=== PATIENT | female | born 1985 | race Caucasian/White ===

== ENCOUNTER 2025-01-04 00:01 | Day surgery (SDC) | payer BC, SELFPAY ==
[2024-12-28 14:17] VITALS: BMI 34.6
--- NOTE | 2024-12-28 14:25 | PC.NURSE ---
Report to the Outpatient Waiting Room, entrance under the green pavilion located off [facility], at time _1100_ on date _[id number]_. Planned Procedure Time: _1pm_.? Time changes happen often and if your time is changed the preop area will call you the afternoon before. - You and your visitor will be asked to self-screen and do not enter if you have any COVID symptoms. Please call surgeon if you need to reschedule. - A mask is optional within the hospital at this time. Patients may have clear liquids (water, carbonated beverages, clear teas, apple juice) until 3 hours prior to surgery with a maximum of 20 ounces. - No food from midnight until time of surgery and no smoking, or chewing tobacco (or any form of nicotine). No chewing gum, candy or mints. Take only the following medications with a SIP of water on the morning of surgery: ___Albuterol if needed. DO NOT STOP ANY OF YOUR OTHER PRESCRIPTION MEDICATIONS PRIOR TO SURGERY EXCEPT THE FOLLOWING Hold all vitamins and supplements for 3 days per anesthesiologist. Medications to discontinue per physician Date to take last dose Please no make-up, nail welsh, hairspray, perfume, deodorant, or body powder the day of surgery.? No jewelry (including any body piercings) or valuables the day of surgery, leave them at home.? Please take a shower or bath the night before, or the morning of, surgery with an antibacterial soap.? Wear comfortable, loose fitting clothing.? - Jewelry must be removed prior to entering the operating room.? Rings and piercings that are not removed may be cut off. - The hospital will not accept responsibility for valuables.? - Please leave all valuables, including medications, at home the day of surgery. If you are going home after surgery, a licensed class a truck driver must drive you home.? - NO public transportation without another adult if you receive anesthesia. - We recommend that an adult stay with you for 24 hours following discharge. - We also recommend that you do not drive, make important decision, drink alcoholic beverages, or take any drugs that were not prescribed by your health care provider for at least 24 hours after your discharge time. Follow any additional instructions given to you from your surgeon. Telephone instructions given to _Tara_and asked if any additional questions and then verbalized understanding. Patient advised to call surgeon office or pre surgery nurse liaison [phone] if any additional questions.
--- OUTSIDE RECORDS SUMMARY | 2025-01-04 00:04 | XMS_ITS | Data Portability ---
Author Organization GEOFFREY Donald RICE Address [address] [facility] [place] [address] Assessment Encounter Date Assessment Date Assessment LastModified by Organization Details LastModified Time 03/21/2016 03/21/2016 No complaints at this time. Would like to restart control pills that she was on most recent. Rx called into pharmacy. Pap done and sent to lab. Counseled regarding prevention of STD's . Counseled regarding contraceptive options . Advised avoidance of tobacco, alcohol, and drugs . Counseled regarding folic acid supplementation, calcium needs and prevention of osteoporosis . BSE reviewed and recommended. [email or web address] Not available 03/21/2016 15:59:27 Plan of Treatment Reminders Order Date Submit Date Provider Last Modified By Organization Details Last Modified Time Details Appointments None recorde d. Lab CBC 2016 017 [facility], [address] [place] [address], [address], [place], [address], 7 08:20:45 CMP, serum or plasma 2016 017 [facility], [facility], [address], [place], [address], 7 08:20:45 lipid panel, serum 2016 017 [facility], [facility], [address], [place], [address], 7 08:20:46 TSH + free T4, serum 2016 017 [facility], [address] [facility], [address], [place], [address], 7 08:20:44 pap, IG + reflex HR HPV (16+18) - cervix 2015 016 [facility], [address] [facility] [facility], [address], [place], [address], 6 11:26:22 cf (cystic fibrosi s) profile 2015 016 [facility], [address] [facility], [address], [place], [address], 6 15:15:43 Referral dermato logist referra l 2015 016 [email or web address] Not available 6 10:13:22 Procedures None recorde d. Surgeries None recorde d. Imaging None recorde d. Medication Orders naproxe n 500 mg tablet 2016 017 [facility], [address] [place] [address], [address] [place] [address], [address], 7 10:08:31 ondanse keith HCl 4 mg tablet 2016 017 [facility], [address] [place] [address], [address] [place] [address], [address], 7 10:08:30 Junel FE 1/20 (28) 1 mg-20 mcg (21)/75 mg (7) tablet 2015 0[facility] [address] [place] [address], [address], [address], 6 16:02:29 ProAir HFA 90 mcg/act uation aerosol inhaler 2015 016 [facility], [address] [place] [address], [address], [place], [address], 6 15:59:23 azithro mycin 500 mg tablet 2015 016 [email or web address] [facility], [address] [place] [address], [address] [place] [address], [address], 6 15:41:58 montelu kast 10 mg tablet 2015 016 [email or web address], [address] [place] [address], [address], [place], [address], 6 15:43:34 Patient TargetsNo targets recorded. Patient Instructions Encounter Date Encounter Id Patient Instructions Last Modified By Organization Details Last Modified Time 02/24/2016 [id number] reactive airway disease: care instructions [email or web address] Not available 02/24/2016 16:00:47 Acute Sinusitis: Care Instructions [email or web address] Not available 02/24/2016 16:00:47 Reason for Referral Set Up And Lay Out Inspector Referral for A cne adult acne Referring Physician: Manolo Colmenares, Family Medicine, Encounter Date: 2015 Results Created Date Observation Date Name Description Value Unit Range Abnormal Flag Note LastModifiedBy Organization Detail LastModifiedTime 03/21/20 16 03/27/2016 pap, IG + refle x HR HPV (16+1 8) diagnosis: COMMEN T abnormal EPITH ELIAL CELL ABNOR MALIT Y. ATYPI AVA SQUAM OUS CELLS OF UNDET ERMIN ED SIGNI FICAN CE. Not Available [facility] ([facility]) [address] [facility], [place], [address], 03/27/2016 11:26:22 03/21/20 16 03/27/2016 pap, IG + refle x HR HPV (16+1 8) specimen adequacy: COMMEN T SATIS FACTO RY FOR EVALU ATION . ENDOC ERVIC AL AND/O R SQUAM OUS METAP LASTI C CELLS (ENDO CERVI AVA COMPO NENT) ARE PRESE NT. Not Available [facility] ([facility]) [address] [place], [address], 03/27/2016 11:26:22 03/21/20 16 03/27/2016 pap, IG + refle x HR HPV (16+1 8) clinician provided ICD10: MIESHA Okeefe Z01.4 19 Not Available [facility] ([facility]) [address] [place], [address], 03/27/2016 11:26:22 03/21/20 16 03/27/2016 pap, IG + refle x HR HPV (16+1 8) performed by: LEYLA GRAFF (ASCP ) Not Available [facility] ([facility]) [address] [place], [address], 03/27/2016 11:26:22 03/21/20 16 03/27/2016 pap, IG + refle x HR HPV (16+1 8) electronical ly signed by: MIESHA TOVAR MD, PATHO LOGIS T Not Available [facility] ([facility]) [address] [place], [address], 03/27/2016 11:26:22 03/21/20 16 03/27/2016 pap, IG + refle x HR HPV (16+1 8) . . Not Available [facility] ([facility]) [address] [place], [address], 03/27/2016 11:26:22 03/21/20 16 03/27/2016 pap, IG + refle x HR HPV (16+1 8) pathologist provided ICD10: MIESHA Okeefe R87.6 10 Not Available [facility] ([facility]) [address] [place], [address], 03/27/2016 11:26:22 03/21/20 16 03/27/2016 pap, IG + refle x HR HPV (16+1 8) note: COMMEN T THE PAP SMEAR IS A SCREE NATALIA TEST DESIG CARIDAD TO AID IN THE DETEC TION OF MIGUEL LIGNA NT AND MALIG NANT CONDI TIONS OF THE UTERI NE CERVI X. IT IS NOT A DIAGN OSTIC PROCE DURE AND SHOUL D NOT BE USED THE SOLE MEANS OF DETEC TING CERVI AVA CANCE R. BOTH FALSE -POSI TIVE AND FALSE -NEGA TIVE REPOR TS DO OCCUR . Not Available [facility] ([facility]) [address] [facility], [place], [address], 03/27/2016 11:26:22 03/21/20 16 03/27/2016 pap, IG + refle x HR HPV (16+1 8) test methodology: COMMEN T THIS LIQUI D BASED THINP REP(R ) PAP TEST WAS SCREE CARIDAD WITH THE USE OF AN IMAGE GUIDE Gwendolyn Herman. Not Available [facility] ([facility]) [address] [facility], [place], [address], 03/27/2016 11:26:22 03/21/20 16 03/27/2016 pap, IG + refle x HR HPV (16+1 8) HPV, high-risk NEGATI VE negati ve THIS HIGH- RISK HPV TEST DETEC TS THIRT EEN HIGH- RISK TYPES (16/1 8/31/ 33/35 /39/4 5/51/ 52/56 /58/5 9/68) WITHO UT DIFFE RENTI ATION . Not Available [facility] ([facility]) [address] [place], [address], 03/27/2016 11:26:22 03/22/20 16 03/29/2016 cf (cyst ic fibro sis) profi le interpretati on: ONE VARIAN T DETECT ED. abnormal Not Available [facility] ([facility]) [address] [facility], [place], [address], 03/29/2016 15:15:43 03/22/20 16 03/29/2016 cf (cyst ic fibro sis) profi le cystic fibrosis mutation 97 COMMEN T MOLEC ULAR ANGELA SIS REPOR T HAS BEEN KANNAN D. Not Available [facility] ([facility]) [address] [facility] [place], [address], 03/29/2016 15:15:43 10/27/19 17 10/27/2016 TSH + free T4, serum TSH 0.922 uIU/m L 0.450- 4.500 Not Available [facility] ([facility]) [address] [facility] [place], [address], 10/27/2016 08:20:44 10/27/19 17 10/27/2016 TSH + free T4, serum T4,free(dire ct) 1.18 NG/dL 0.82-1 .77 Not Available [facility] ([facility]) [address] [facility], [place], [address], 10/27/2016 08:20:44 10/27/19 17 10/27/2016 CBC WBC 6.2 x10e3 /uL 3.4-10 .8 Not Available [facility] ([facility]) [address] [facility] [place], [address], 10/27/2016 08:20:45 10/27/19 17 10/27/2016 CBC RBC 4.43 x10e6 /uL 3.77-5 .28 Not Available [facility] ([facility]) [address] [facility], [place], [address], 10/27/2016 08:20:45 10/27/19 17 10/27/2016 CBC hemoglobin 13.2 g/dL 11.1-1 5.9 Not Available [facility] ([facility]) [address] [facility] [place], [address], 10/27/2016 08:20:45 10/27/19 17 10/27/2016 CBC hematocrit 39.7 % 34.0-4 6.6 Not Available [facility] ([facility]) [address] [facility] [place], [address], 10/27/2016 08:20:45 10/27/19 17 10/27/2016 CBC MCV 90 fL 79-97 Not Available [facility] ([facility]) [address] [facility], [place], [address], 10/27/2016 08:20:45 10/27/19 17 10/27/2016 CBC MCH 29.8 pg 26.6-3 3.0 Not Available [facility] ([facility]) [address] [facility], [place], [address], 10/27/2016 08:20:45 10/27/19 17 10/27/2016 CBC MCHC 33.2 g/dL 31.5-3 5.7 Not Available [facility] ([facility]) [address] [place], [address], 10/27/2016 08:20:45 10/27/19 17 10/27/2016 CBC RDW 14.4 % 12.3-1 5.4 Not Available [facility] ([facility]) [address] [facility], [place], [address], 10/27/2016 08:20:45 10/27/19 17 10/27/2016 CBC platelets 346 x10e3 /uL 150-37 9 Not Available [facility] ([facility]) [address] [place], [address], 10/27/2016 08:20:45 10/27/19 17 10/27/2016 CBC neutrophils 53 % Not Avai lable [facility] ([facility]) [address] [place], [address], 10/27/2016 08:20:45 10/27/19 17 10/27/2016 CBC lymphs 31 % Not Available [facility] ([facility]) [address] [place], [address], 10/27/2016 08:20:45 10/27/19 17 10/27/2016 CBC monocytes 8 % Not Availa ble [facility] ([facility]) [address] [place], [address], 10/27/2016 08:20:45 10/27/19 17 10/27/2016 CBC eos 7 % Not Available [facility] ([facility]) [address] [facility] [place], [address], 10/27/2016 08:20:45 10/27/19 17 10/27/2016 CBC basos 1 % Not Available [facility] ([facility]) [address] [facility] [place], [address], 10/27/2016 08:20:45 10/27/19 17 10/27/2016 CBC immature cells BICYCLE INSPECTOR Not Available [facility] ([facility]) [address] [facility] [place], [address], 10/27/2016 08:20:45 10/27/19 17 10/27/2016 CBC neutrophils (absolute) 3.3 x10e3 /uL 1.4-7. 0 Not Available [facility] ([facility]) [address] [facility] [place], [address], 10/27/2016 08:20:45 10/27/19 17 10/27/2016 CBC lymphs (absolute) 1.9 x10e3 /uL 0.7-3. 1 Not Available [facility] ([facility]) [address] [facility] [place], [address], 10/27/2016 08:20:45 10/27/19 17 10/27/2016 CBC monocytes(ab solute) 0.5 x10e3 /uL 0.1-0. 9 Not Available [facility] ([facility]) [address] [facility] [place], [address], 10/27/2016 08:20:45 10/27/19 17 10/27/2016 CBC eos (absolute) 0.4 x10e3 /uL 0.0-0. 4 Not Available [facility] ([facility]) [address] [facility] [place], [address], 10/27/2016 08:20:45 10/27/19 17 10/27/2016 CBC baso (absolute) 0.0 x10e3 /uL 0.0-0. 2 Not Available [facility] ([facility]) [address] [facility], [place], [address], 10/27/2016 08:20:45 10/27/19 17 10/27/2016 CBC immature granulocytes 0 % Not Available [facility]) [address] [place], [address], 10/27/2016 08:20:45 10/27/19 17 10/27/2016 CBC immature grans (abs) 0.0 x10e3 /uL 0.0-0. 1 Not Available [facility] ([facility]) [address] [place], [address], 10/27/2016 08:20:45 10/27/19 17 10/27/2016 CBC NRBC BICYCLE INSPECTOR Not Available [facility] ([facility]) [address] [place], [address], 10/27/2016 08:20:45 10/27/19 17 10/27/2016 CBC hematology comments: BICYCLE INSPECTOR Not Available [facility] ([facility]) [address] [facility], [place], [address], 10/27/2016 08:20:45 10/27/19 17 10/27/2016 CMP, serum or plasm a glucose, serum 111 mg/dL 65-99 above high normal Not Available [facility] ([facility]) [address] [place], [address], 10/27/2016 08:20:45 10/27/19 17 10/27/2016 CMP, serum or plasm a BUN 16 mg/dL 6-20 Not Available [facility] ([facility]) [address] [place], [address], 10/27/2016 08:20:45 10/27/19 17 10/27/2016 CMP, serum or plasm a creatinine, serum 0.66 mg/dL 0.57-1 .00 Not Available [facility] ([facility]) [address] [facility] [place], [address], 10/27/2016 08:20:45 10/27/19 17 10/27/2016 CMP, serum or plasm a eGFR if nonafricn AM 120 mL/mi n/1.7 3 >59 Not Available [facility] ([facility]) [address] [facility] [place], [address], 10/27/2016 08:20:45 10/27/19 17 10/27/2016 CMP, serum or plasm a eGFR if africn AM 138 mL/mi n/1.7 3 >59 Not Available [facility] ([facility]) [address] [facility] [place], [address], 10/27/2016 08:20:45 10/27/19 17 10/27/2016 CMP, serum or plasm a BUN/creatini ne ratio 24 9-23 above high normal Not Available [facility] ([facility]) [address] [facility] [place], [address], 10/27/2016 08:20:45 10/27/19 17 10/27/2016 CMP, serum or plasm a sodium, serum 140 mmol/ L 134-14 4 Not Available [facility] ([facility]) [address] [place], [address], 10/27/2016 08:20:45 10/27/19 17 10/27/2016 CMP, serum or plasm a potassium, serum 4.5 mmol/ L 3.5-5. 2 Not Available [facility] ([facility]) [address] [place], [address], 10/27/2016 08:20:45 10/27/19 17 10/27/2016 CMP, serum or plasm a chloride, serum 104 mmol/ L 96-106 Not Available [facility] ([facility]) [address] [facility] [place], [address], 10/27/2016 08:20:45 10/27/19 17 10/27/2016 CMP, serum or plasm a carbon dioxide, total 19 mmol/ L 18-29 Not Available [facility] ([facility]) [address] [facility] [place], [address], 10/27/2016 08:20:45 10/27/19 17 10/27/2016 CMP, serum or plasm a calcium, serum 9.4 mg/dL 8.7-10 .2 Not Available [facility] ([facility]) [address] [facility] [place], [address], 10/27/2016 08:20:45 10/27/1910/27/2016 CMP, serum or plasm a protein, total, serum 7.1 g/dL 6.0-8. 5 Not Available [facility] ([facility]) [address] [facility] [place], [address], 10/27/2016 08:20:45 10/27/1910/27/2016 CMP, serum or plasm a albumin, serum 4.4 g/dL 3.5-5. 5 Not Available [facility] ([facility]) [address] [facility] [place], [address], 10/27/2016 08:20:45 10/27/19 17 10/27/2016 CMP, serum or plasm a globulin, total 2.7 g/dL 1.5-4. 5 Not Available [facility] ([facility]) [address] [facility] [place], [address], 10/27/2016 08:20:45 10/27/1910/27/2016 CMP, serum or plasm a A/G ratio 1.6 1.2-2. 2 Not Available [facility] ([facility]) [address] [facility] [place], [address], 10/27/2016 08:20:45 10/27/19 10/27/2016 CMP, serum or plasm a bilirubin, total 0.2 mg/dL 0.0-1. 2 Not Available [facility] ([facility]) [address] [facility] [place], [address], 10/27/2016 08:20:45 10/27/19 17 10/27/2016 CMP, serum or plasm a alkaline phosphatase, S 52 IU/L 39-117 Not Available [facility] ([facility]) [address] [facility] [place], [address], 10/27/2016 08:20:45 10/27/19 17 10/27/2016 CMP, serum or plasm a AST (SGOT) 22 IU/L 0-40 Not Available [facility] ([facility]) [address] [facility] [place], [address], 10/27/2016 08:20:45 10/27/19 17 10/27/2016 CMP, serum or plasm a ALT (SGPT) 28 IU/L 0-32 Not Available [facility] ([facility]) [address] [facility] [place], [address], 10/27/2016 08:20:45 10/27/19 17 10/27/2016 lipid panel , serum cholesterol, total 229 mg/dL 100-19 9 above high normal Not Available [facility] ([facility]) [address] [facility] [place], [address], 10/27/2016 08:20:46 10/27/1910/27/2016 lipid panel , serum triglyceride s 146 mg/dL 0-149 Not Available [facility] ([facility]) [address] [facility] [place], [address], 10/27/2016 08:20:46 10/27/1910/27/2016 lipid panel , serum HDL cholesterol 75 mg/dL >39 Not Available [facility] [address] [facility] [place], [address], 10/27/2016 08:20:46 10/27/19 17 10/27/2016 lipid panel , serum VLDL cholesterol ava 29 mg/dL 5-40 Not Available [facility] ([facility]) [address] [facility] [place], [address], 10/27/2016 08:20:46 10/27/19 17 10/27/2016 lipid panel , serum LDL cholesterol calc 125 mg/dL 0-99 above high normal Not Available [facility] ([facility]) [address] [facility] [place], [address], 10/27/2016 08:20:46 10/27/19 17 10/27/2016 lipid panel , serum comment: BICYCLE INSPECTOR Not Available [facility] ([facility]) [address] [place], [address], 10/27/2016 08:20:46 10/27/19 17 10/27/2016 lipid panel , serum T. chol/HDL ratio 3.1 ratio _unit s 0.0-4. 4 T. CHOL/ HDL RATIO MEN WOMEN 1/2 AVG.R ISK 3.4 3.3 AVG.R ISK 5.0 4.4 2X AVG.R ISK 9.6 7.1 3X AVG.R ISK 23.4 11.0 Not Available [facility] ([facility]) [address] [place], [address], 10/27/2016 08:20:46 10/27/19 17 10/27/2016 cardi ovasc ular asses sment panel , serum interpretati on NOTE SUPPL EMENT REPOR T IS AVAIL ABLE. Not Available [facility] ([facility]) [address] [facility] [place], [address], 10/27/2016 08:20:46 10/27/19 17 10/27/2016 cardi ovasc ular asses sment panel , serum pdf image . Not Available [facility] ([facility]) [address] [place], [address], 10/27/2016 08:20:46 12/01/[address], head + brain , w/o contr ast No observ ation record ed. [email or web address] Not Available 11/22 19:50:44 Result Notes None recorded. Problems Name Problem SNOMED Code Status Onset Date Resolution Date Notes Provider Name and Address Organization Details Recorded Time Environmental allergy 603695789 Active KRISTAN Queen Attn: Jose morse,[address] [place], [address], [facility] 6 15:45:11 Chronic pelvic pain of female 053557092 Active KRISTAN Queen Attn: Jose morse,[address] [place], [place], [address] [place] [address] 2, [facility] 6 15:45:11 Anterior knee pain 624848382 Active MOISE QueenBC Attn: Jose morse,[address] [place], [place], [address] [place] [address] 2, [facility] 6 15:45:11 Tonsillitis 93861977 Active MOISE QueenBC Attn: Jose morse,[address] [place], [place], [address] [place] [address] 2, [facility] 6 15:45:11 Bacterial vaginosis 692047033 MOISE SandovalBC Attn: Jose morse,[address] [place], [place], [address] [place] [address] 2, [facility] 6 15:45:11 Acne 54122661 Active MOISE QueenBC Attn: Accountjoanne morse,[address] [place], [address], [facility] 6 15:45:11 Acute sinusitis 99438438 Active MAX Queen-BC Attn: Accountin g,[address] [place], [address], [facility] 6 15:45:11 Bronchospasm 3238161 Active Lashell Campbellam, [facility]- Attn: Jose morse,[address] [facility], [place], [address], [facility] 6 15:45:11 Notes:refill on bc pills- be en off of pills for 3 months Problem Notes None recorded. Procedures Surgical History Date Name Laterality Status Provider Name and Address Organization Details Recorded Time Other completed Christen Crook nd, [place] [facility] 05/16/2014 14:51:00 Imaging Results None recorded. Procedure Notes None recorded. Medical Equipment None Reported. Allergies No known drug allergies Medications Name Sig Start Date Stop Date Status Note LastModified by Organization Details LastModified Time Erythromyci n (Acne Aid) 2 % topical solution daily active Not Available Not Available Not Available Monodox 100 mg capsule Take 1 capsule twice a day by oral route. active Not Available Not Available No t Available ondansetron HCl 4 mg tablet Take 1 tablet twice a day by oral route as needed for 10 days. 2016 active Not Available Not Available Not Avai lable Flagyl 500 mg tablet Take 1 tablet every 12 hours by oral route for 7 days. 2013 active Not Available Not Available Not Avai lable meclizine 25 mg tablet 11/27 completed Not Available Not Available Not Available Cipro 500 mg tablet Take 1 tablet every 12 hours by oral route for 10 days. 2014 active Not Available Not Available Not Avai lable montelukast 10 mg tablet Take 1 tablet every day by oral route for 90 days. 2015 active Not Available Not Available Not Avai lable naproxen 500 mg tablet TAKE ONE TABLET BY MOUTH TWICE A DAY NEEDED active Not Available Not Available No t Available azithromyci n 500 mg tablet Take 1 tablet every day by oral route for 3 days. 03/21 completed Not Available Not Available Not Available 07/13 (28) 1 mg-20 mcg (21)/75 mg (7) tablet Take 1 tablet every day by oral route. 2015 active Not Available Not Available Not Avai lable Singulair 11/27 completed Not Available Not Available Not Available ProAir HFA 90 mcg/actuati on aerosol inhaler Inhale 2 puffs every 4 hours by inhalatio n route as needed for 30 days. 2015 active Not Available Not Available Not Avai lable Vitals Date Recorded Body height Body weight Body mass index (BMI) Oxygen saturation Oxygen saturation in Arterial blood by Pulse oximetry Heart rate Systolic And Diastolic Provider Name and Address Organization Details Last Updated DateTime 7 160.02 cm 98283.9 3 g 29.6 kg/m2 98 % 98 % 94 /min 120/72 mm[Hg] Sanjuanita Quigley MA [facility] 7 15:58:16 Date Recorded Body weight Body height Body mass index (BMI) Systolic And Diastolic Provider Name and Address Organization Details Last Updated DateTime 2015 50355.088 809 g 160.02 cm 27 kg/m2 130/78 mm[Hg] Sanjuanita Quigley MA [facility] 2015 11:30:49 Date Recorded Body height Body weight Body mass index (BMI) Oxygen saturation Oxygen saturation in Arterial blood by Pulse oximetry Heart rate Systolic And Diastolic Provider Name and Address Organization Details Last Updated DateTime 7 160.02 cm 03752.5 g 30.2 kg/m2 98 % 98 % 95 /min 128/88 mm[Hg] Sanjuanita Quigley [facility] 7 10:01:33 Date Recorded Body height Body mass index (BMI) Oxygen saturation Oxygen saturation in Arterial blood by Pulse oximetry Heart rate Body weight Systolic And Diastolic Provider Name and Address Organization Details Last Updated DateTime 6 160.02 cm 27.7 kg/m2 99 % 99 % 91 /min 89910.5 07419 g 118/76 mm[Hg] Antonia Miner MA [facility] 6 15:43:34 Date Recorded Body height Body weight Body mass index (BMI) Systolic And Diastolic Provider Name and Address Organization Details Last Updated DateTime 03/21/2016 160.02 cm 23279.447 87 g 26.7 kg/m2 114/70 mm[Hg] Sanjuanita Quigley [facility] 03/21/2016 15:41:22 Social History None recorded. Functional Status None recorded. Mental Status None recorded. Family History Relationship Description Onset Age of this Age Resolved Age Notes LastModified by Organization Details LastModified Time Mother Heart disease [email or web address] Not available 15:45:16 Mother Hypertensive disorder [email or web address] Not available 15:45:16 Mother Diabetes mellitus [email or web address] Not available 15:45:16 Mother Cystic fibrosis [email or web address] Not available 15:45:16 Medical History Condition Response Coronary Artery Disease N Kidney Cyst N Blood Diseases N Hyperthyroidism N Blood Transfusion N MRSA N Blood disorders N Emphysema N Blood Clots N COPD N Depression N Pneumonia N Premature N Peripheral Arterial Disease N Edema N TIA N Headaches/Migraines N Anxiety Disorder N Obesity N Infertility N Polyps N Acid Reflux (GERD) N Hematuria N Stroke N Neck Injury N Polio N Hospital Admission other than N Neurologic Disorder N Other Sleep Disorders N Rheumatoid Arthritis N Fibromyalgia N Abdominal Aortic Aneurysm Repair N Kidney Disease N Heart Conditions N Heart Disease/Heart Problems N Hospitalizations N Brain Tumors N Acne N Skin Problems N Eating Disorder N Meningitis N Constipation N Tuberculosis N Cerebral Palsy N Myocardial Infarction N Asthma N Substance Abuse N Peripheral Vascular Disease N Vertigo N Sleep Disorder N Cirrhosis N Pulmonary Embolism N Chicken Pox N Hematologic Disease N Flomax Use Past or Present N Anxiety/Depression N Thyroid Disease N Colon Cancer N Lung Disease N Glaucoma N Developmental or Behavioral Disorders N Bipolar N Pacemaker N Diverticulitis/Diverticulosis N Orthopedic Problems N Anesthesia Complications N Orthotics N Head Injury/Concussion N Congenital Anomalies N Spencer Bite N Chronic Kidney Disease N Endometriosis N Liver Disease N Schizophrenia N Dialysis N Speech Delay N Chronic Obstructive Pulmonary Disease N Parkinson's Disease N Thyroid Problems N GI Problems N Developmental Delay N Anemia N Multiple Sclerosis N Immune System Disorder N Colon Polyps N Heart Attack ([place]) N Diabetes N Cardiomyopathy N Blood Transfusions N Heart Problems/Murmur N Eye Trauma N Congestive Heart Failure (CHF) N Valvular Heart Disease N Hyperlipidemia N Double Vision N Abuse/Domestic Violence N Hepatitis B N Lupus N Epilepsy/Seizures N Reflux/GERD N Aneurysm N Heart Disease N Bronchitis Y Pre-Eclampsia N Hypertension N Heart Failure N Other N Gout N High Blood Pressure N Atrial Fibrillation N Kidney Stones N Head Trauma/Injury N Congenital Heart Disease N Spine Problems N Gastrointestinal Disease N Lung Mass N Sinusitis N Obstructive Sleep Apnea N Muscle, Joint, or Bone Problems N Autoimmune disease N Vision or Eye Problems N Arthritis N Blood Clot N Cancer N Seasonal allergies N Leg or Foot Ulcers N Raynaud's Disease N Aortic Aneurysm N Arrhythmia N Headaches N Heart Problems N [place] N Ear or Hearing Problems N Hyperparathyroidism N Migraines N Artificial Joints N Kidney or Bladder Problems N NSAID Use N Encephalitis N PTSD N Ulcers N Prostate Hypertrophy N Bleeding Disorder N AIDS/HIV N Urinary Tract Infection N Back Problems N Allergies N Atrial Flutter N GERD/Reflux N Hepatitis N Autism Spectrum Disorder (ASD) N Breast Cancer N Hernia N Hypothyroidism N Breast Problem N Genitourinary Disease N Deep Vein Thrombosis N Varicose Veins N Cystic Fibrosis Y Hearing Loss N Developmental Problems N Carotid Disease N Vitamin D Deficiency N ADHD N Bladder or Kidney Problems N High Cholesterol N [place] N Valvular Abnormalities N Psychiatric/Mental Health Condition N Organ Transplant N Foot Deformity N Allergies/Hayfever N Dyslipidemia N Hyponatremia N Diabetic Eye Disease N Osteoporosis/Osteopenia N Back Pain N Proteinuria N Mental Illness N Neurological Problems N Ovarian Cancer N Bedwetting N Seizures/Epilepsy N Kidney Failure N Ocular trauma N Diverticulitis N Dementia N Sleep Apnea N Mental Problems N Warfarin Management N Osteoporosis N Gynecological History Statement/Question Response Abnormal Pap N Sexually Active? Y STIs/STDs N HPV Vaccine N Date of Last Pap Smear Sexual Problems? N Age at Menarche 14 Current Control Method BCPs LMP Approximate Obstetrics History GPAL:G 0 P 0 0 0 0 Type Value Living 0 Total 0 Past Encounters Encounter ID Performer Location Encounter Start Date Encounter Closed Date Diagnosis/Indication Diagnosis SNOMED-CT Code Diagnosis ICD10 Code Diagnosis Note [id number] [facility] [address] 06/07/2014 14:43:19 06/08/2014 10:12:45 Uses contraception [id number] Gynecologi c examination [id number] Sulaiman Acosta MD [facility] [address] [place] [address] 01/28/2015 10:30:35 01/28/2015 11:29:49 Environmental allergy [id number] Sulaiman Acosta MD [facility] [address] [place] [address] 02/11/2015 10:14:31 02/11/2015 10:58:12 Environmental allergy [id number] MD [facility] ([place] [address]) 2 [facility] [place] [place] [address] 02/21/2015 11:18:20 02/21/2015 12:02:33 Uses contraception [id number] Gynecologi c examination 32456838 Chronic pe lvic pain of female [id number] [facility] [address] [place] [address] 04/04/2015 09:52:01 04/04/2015 17:49:52 Anterior knee pain 048728143 M25.569 [id number] Sulaiman Acosta MD [facility] [address] [place] [address] 05/25/2015 11:30:01 05/25/2015 11:58:13 Tonsillitis 32490473 J03.90 [id number] Manolo Colmenares PA-C [facility] [address] [place] [address] 2015 11:22:17 2015 11:51:21 Acne 96509604 L70.9 Environmental allergy 42 7099426 T78.49XD [id number] Manolo Colmenares PA-C [facility] [address] [place] [address] 02/24/2016 15:25:32 02/28/2016 09:55:11 Acne 46234017 L70.9 Acute sinusitis 31814646 J01.90 Bronchospasm 4576981 J98 .01 [id number] Lashell Coates [employer] [address] [place] [address] 03/21/2016 15:29:12 03/21/2016 16:04:19 Gynecologic examination 01941466 Z01.419 Contraception care 97555 5005 Z30.40 Family his tory of cystic fibrosis 054017386 Z83.49 [id number] Sulaiman Acosta MD [facility] [address] [place] [address] 10/25/2016 15:45:33 10/25/2016 17:32:00 Hematoma of lower leg 540063411 S80.11XA [id number] Sulaiman Acosta MD [facility] [address] [place] [address] 2016 09:55:24 2016 13:51:11 Migraine without aura 24726492 G43.009 Health Concerns Section Related Observation LastModified by Organization Detai ls LastModified Time None Recorded Concern Status LastModified by Organization Details LastModified Time None Recorded Advance Directives Directive None Recorded Payers Insurance Date Sequence Insurance Name Policy Number Policy Arboleda Covered Member ID Arboleda Member ID Guarantor Name 02/24/2016 1 [place] [facility] [place] [facility] Itzel Bellitto [id number] Itzel Bellitto 02/24/2016 1 [place] [id number] Itzelfrederic Elenaitto [id number] Itzel Bellitto 10/25/2016 1 [place] [facility] OF PUBLIC AID Itzel Bellitto [id number] Itzel Bellitto 03/20/2017 1 [facility] [id number] Itzelfrederic Greeno [id number] Itzel Petero Notes Date Note Type Note Provider Name and Address Organization Details Recorded Time 2015 text/html acne. wants a specialist. not taking singulair-ran out. Manolo Colmenares PA-C Attn: [address] [place], [address], [facility] 2015 11:37:59 02/24/2016 text/html uri symptoms cou gh, sinus, fever. on doxy currently Manolo Colmenares PA-C Attn: [address] [place], [address], [facility] 02/24/2016 15:55:00 03/21/2016 text/html Annual GYNReport ed bypatient.History:n o gynecologic complaints Menstrual cycle:Normal menses Urinary symptoms:No hematuria; No incontinence Vulva:No genital lesion Vagina:Normal vaginal discharge Breast:No breast pain; No breast lump; No nipple discharge Current Contraception:Wants to discuss contraceptive options Sexual complaints:No sexual complaints; No pain during intercourse; Normal libido Menopausal Symptoms:No menopausal symptoms; Normal vaginal lubrication Psychological symptoms:No depression; No anxiety; No PMDD Preventive measures:Encourage self breast examination; Encourage regular exercise; Encourage no tobacco use; Encourage regular mammograms starting age 40; Followed with Q3 year pap smear and high risk HPV typing Lashell Coates, [facility]- Attn: [address] [place], [address], [facility] 03/21/2016 16:03:57 10/25/2016 text/html has been recievi ng bruises but denies any knowledge of injury. Manolo Colmenares PA-C Attn: [address] [place], [address], [facility] 10/25/2016 17:03:09 11/27/2016 text/html migraines. seen in ER ct scan negative Manolo Colmenares PA-C Attn: [address] [place], [address], [facility] 2016 10:05:10 OBGyn Episode No OBEpisode recorded.
--- OUTSIDE RECORDS SUMMARY | 2025-01-04 00:04 | XMS_ITS | Continuity of Care Document ---
Author Organization [facility] Address [address] [place] [address] Phone Care Team Providers Care Missionary Coordinator Name Role Phone Cielo BUSTAMANTE MD, Sean Unavailable Unavaila ble Advance Directives Directive Yes / No Effective Date File Name No Information Encounters Encounter Description Practice Location Reason(s) For Visit Diagnoses Date Provider Providers Copied on Encounter [facility], [address], [id number], [place] tel:[phone] [facility] No Information 0 Cielo Estrada. [address] [facility], [facility] [address], [place], [place], [id number] , [place]. tel:[phone] Family History Family Member Type Diagnosis Age At Onset No Information Payers Payer name Insurance type Covered republican ID Authoriza tion(s) No Information Social History Type Description Quantity Date Captured Comments Sex Female Smoking Status No Information Chief Complaint And Reason For Visit No Information Reason For Referral Reason For Referral No Information History Of Present Illness Encounter Date Complaint History Of Prese nt Illness No Information Functional Status Date Functional Assessmen t No Information Instructions Date Instruction Additional Infor mation No Information Assessments Type Assessment Date No Information Patient Care Teams Name Effective Dates (start - stop) Status Members No Information
--- OUTSIDE RECORDS SUMMARY | 2025-01-04 00:04 | XMS_ITS | Data Portability ---
Author Organization [facility] Address [address] [place] [address] Care Team Providers Care Group Fitness Manager Name Role Phone YOVANI JONES Primary Care Provider Assessment Encounter Date Assessment Date Assessment LastModified by Organization Details LastModified Time 04/15/2024 04/15/2024 Annual gynecological exam performed. Patient will come back in a year unless there are new symptoms. [email or web address] Not available 04/01/2024 12:40:43 Plan of Treatment Reminders Order Date Submit Date Provider Last Modified By Organization Details Last Modified Time Details Appointments SURG Hysterosc opy 2024 01:00P Batsheva BALL MD Not available Not available Not available SURG POST OP 2024 11:15A Batsheva BALL MD Not available Not available Not available Lab lipid panel, blood 2023 024 [facility] (Lab), [address], [place], [address], 04/27/2024 16:13:23 pap, IG + HR HPV - HPV regardles s but if HPV is positive need subtyping 16,18/45 Add GC/CT/Tri ch 2023 024 [facility] (Lab), [address], [place], [address], 04/22/2024 09:43:07 progester one, serum 2023 024 [facility] (Lab), [address], [place], [address], 04/27/2024 16:13:24 anti-edel erian hormone (amh), serum 2023 [facility] (Lab), [address], [place], [address], 04/27/2024 16:13:23 HbA1c (hemoglob in A1c), blood 2023 [facility] (Lab), [address], [place], [address], 04/27/2024 16:13:26 prolactin , serum 2023 [facility] (Lab), [address] [place], [address], 04/27/2024 16:13:24 17-hydrox yprogeste MAUREEN payne, serum 2023 [facility] (Lab), [address], [place], [address], 04/27/2024 16:13:26 FSH (follicle -stimulat ing hormone), serum 2023 [facility] (Lab), [address] [place], [address], 04/27/2024 16:13:25 estradiol , serum 2023 [facility] (Lab), [address], [place], [address], 04/27/2024 16:13:24 lh (luteiniz ing hormone), serum 2023 [facility] (Lab), [address] [place], [address], 04/27/2024 16:13:25 TSH, serum or plasma 2023 [facility] (Lab), [address], [place], [address], 04/27/2024 16:13:23 testoster one free/test osterone total, ratio, serum 2023 024 [facility] (Lab), [address], [place], [address], 04/27/2024 16:13:26 dhea-sulf ate, serum 2023 024 [facility] (Lab), [address], [place], [address], 04/27/2024 16:13:25 Referral None recorded. Procedures None recorded. Surgeries hysterosc opy, surgical, with biopsy of endometri um and/or polypecto my (SURG) [address], [address] [place] [address], [place], [address], 12/28/2024 11:11:57 Imaging US, pelvis 2023 024 [email or web address], [address], [place], [address], 04/21/2024 13:29:07 US, transvagi nal 2023 024 [email or web address], [address], [place], [address], 04/21/2024 13:29:07 US, pelvis, complete 2023 [email or web address] Not available 04/22/2024 09:15:35 Medication Orders None recorded. Patient TargetsNo targets recorded. Patient InstructionsNo instructions recorded. Reason for Referral None Reported. Results Created Date Observation Date Name Description Value Unit Range Abnormal Flag Note LastModifiedBy Organization Detail LastModifiedTime 04/15/20 24 04/15/2024 IMAGE GUIDE D PAP AND HPV REGAR DLESS image guided Pap, HPV regardless of Pap result SEE RESULT S BELOW CASE REPOR T: Cytol ogy Gynec ologi forest Repor t Case: [id number] Aut[employer] crystal mini Provi afsaneh: Isidro dy, Elan , ANP, PATIENT SERVICES ASSISTANT Colle cted: 04/15 1205 Order ing Locat ion: [place] Patho log[facility] Recei stephanie: 04/16 0816 First Scree n: Abida Escobar, CT Speci men: Lois foster Pap - Image d, Cervi x STATE MENT OF ADEQU ACY: Satis facto ry for evalu ation Trans forma tion zone compo nent prese nt ----- ----- ----- ----- ----- ----- ----- ----- ----- ----- ----- ----- ----- ----- ----- ----- ----- ---- FINAL DIAGN OSIS: Negat max for Intra epith elial Lesjeny hernandez or Oksana canales (NIL) . Elect cynthia appiah by Abida Escobar, CT on 04/22 at 8:37 AM ----- ----- ----- ----- ----- ----- ----- ----- ----- ----- ----- ----- ----- ----- ----- ----- ----- ---- HPV RESUL TS: HPV mRNA E6/E7 : No HPV mRNA Detec modesta NOTE: This high risk HPV mRNA assay detec ts fourt een high- risk HPV types (16, 18, 31, 33, 35, 39, 45, 51, 52, 56, 58, 59, 66, 68) witho ut diffe renti ation . COMME NT: This speci men was revie wed by a Cytot echno logis t and/o r Patho logis t (as indic ated in this repor t) after evalu ation using the Thinp rep Imagi ng Syste m. CLINI FOREST INFOR MATIO N: Menst rual Statu s: LMP (if appli cable ): Clini forest Histo ry/Pr eviou s Pap: Type of Neopl jason (if appli cable ): Signi fican t Clini forest Findi ngs: Other Histo ry: Hormo madonna (if appli cable ): PAP EDUCA JOSSELYN L NOTE: The Pap Test is a scree cristian test with an inher ent false negat max rate. Liqui d-bas ed sampl ing may decre ase, but will not elimi julio césar, false negat max resul ts. A negat max resul t does not precl ude the prese nce and/o r devel opmen t of disea se, since the prese nce of abnor mal cells in the sampl e depen ds on the locat ion of the lesio n and sampl ing techn ique. Garrett nued regul ar scree cristian is the best metho d of cance r preve ntion . If repor modesta cytol ogic findi ng do not corre late with physi forest and/o r histo rical findi ngs, furth er inves tigat ion is recom raheem d, as clini vika warra nted. Not Available [facility] (Lab) [address], [place], [address], 04/22/2024 09:43:06 04/15/20 24 04/15/2024 TRICH OMONA S VAGIN PELON (RRNA ) trichomonas vaginalis ribosomal RNA (rrna) Negati ve negati ve Not Available [facility] (Lab) [address] [place], [address], 04/22/2024 09:43:07 04/15/20 24 04/15/2024 CT/GC (DANIEL) , THINP REP VIAL chlamydia trachomatis, PCR Negati ve negati ve Not Available [facility] (Lab) [address] [place], [address], 04/22/2024 09:43:08 04/15/20 24 04/15/2024 CT/GC (DANIEL) , THINP REP VIAL neisseria gonorrhoeae, PCR Negati ve negati ve Not Available [facility] (Lab) [address] [place], [address], 04/22/2024 09:43:08 04/15/20 24 04/15/2024 LIPID PANEL ,AMA (LDL- CALC) total cholesterol 203 mg/dL 0-199 high Not Available [facility] (Lab) [address] [place], [address], 04/27/2024 16:13:22 04/15/20 24 04/15/2024 LIPID PANEL ,AMA (LDL- CALC) triglyceride s 88 mg/dL 0-150 NCEP Refer ence Value s for Trigl yceri bhupendra: Dasha l: <150 mg/dL Borde rline High: 150 - 199 mg/dL High: 200 - 499 mg/dL Very High: >/= 500 mg/dL Not Available [facility] (Lab) [address] [place], [address], 04/27/2024 16:13:22 04/15/20 24 04/15/2024 LIPID PANEL ,AMA (LDL- CALC) HDL cholesterol 44 mg/dL >40 Not Available [facility] (Lab) [address] [place], [address], 04/27/2024 16:13:22 04/15/20 24 04/15/2024 LIPID PANEL ,AMA (LDL- CALC) LDL cholesterol 140 mg/dL 0-99 high Cutof f value s recom raheem d by the Natio nal Ai stero l Educa tion Progr am: KALYAN ABLE: Ai stero l <200 mg/dL LDL <100 mg/dL BORDE RLINE : Ai stero l 200-2 39 mg/dL LDL 101-1 59 mg/dL HIGHE R RISK: Ai stero l >240 mg/dL LDL >160 mg/dL , HDL <40 mg/dL Not Available [facility] (Lab) [address] [place], [address], 04/27/2024 16:13:22 10/23/20 24 04/15/2024 LIPID PANEL ,AMA (LDL- CALC) non-HDL cholesterol 159 mg/dL no refere nce range A reaso nable goal for non-H DL ai stero l is one that is 30 mg/dL highe r than the LDL ai stero l goal. Not Available [facility] (Lab) [address], [place], [address], 04/27/2024 16:13:22 04/15/20 24 04/15/2024 LIPID PANEL ,AMA (LDL- CALC) chol/HDL ratio 4.6 . 0.0-5. 0 On October 16, 2022, [facility] labor atori elisa nolasco ed the equat ion for calcu latin g estim ated low-d ensit y lipop rotei n-cho leste rol (LDL- C) from the Fried nae equat ion to the Liss david/Hop kins equat ion. This new equat ion is only valid for lipid panel s with trigl yceri bhupendra < 400 mg/dL . Thomas pérez have angelon reina ed that this new equat ion will impro ve the accur acy of LDL-C , espec ially in scena abdullahi when LDL-C francisco ntrat ions are relat ively low (< 100 mg/dL ), trigl yceri bhupendra are eleva modesta, or patie nt is non-f astin g. Refer ences : - Liss hernandez, Jake Byrd, Dima Aguilar , [facility] taylor goodman, Rip London, Rip padilla, [facility] , and Yonis Escobar . 2013. Comp ariso n of a Novel Metho d vs the Fried nae Equat ion for Estim ating Low-D ensit y Lipop rotei n Ai stero l Level s from the Stand ernie Lipid Profi le. BRYON: The Journ al of the Ameri can Medic al Assoc iatio n 310 (19): 2060- . - Nicole dickens V, Shasha J, Aldo Henriquez, Brandie Herman, Kellen nickerson R, Emily dickens E, Ava mena RS, Shawn SR, Liss n SS. Fast ing Versu s Nonfa sting and Low-D ensit y Lipop rotei n Ai stero l Accur acy. Circu latjeny n. 2017Jun 25;137 (1):1 0-19. Not Available [facility] (Lab) [address], [place], [address], 04/27/2024 16:13:22 04/15/20 24 04/15/2024 TSH, REFLE X FREE T4 TSH 0.71 uIU/m L 0.30-5 .33 Not Available [facility] (Lab) [address], [place], [address], 04/27/2024 16:13:23 04/15/20 24 04/15/2024 ANTIM COMPA GARNICA HORMO NE (AMH) anti-mulleri an hormone (amh) 2.61 NG/mL Femal e Refer ence Range s 20-24 years : 1.22 - 11.70 ng/mL 25-29 years : 0.89 - 9.85 ng/mL 30-34 years : 0.58 - 8.13 ng/mL 35-39 years : 0.15 - 7.49 ng/mL 40-44 years : 0.03 - 5.47 ng/mL The follo wing resul ts were obtai danielle with the Elecs ys assay . Resul ts from assay s of other manuf actur es canno t be used inter [facility]. Not Available [facility] (Lab) [address], [place], [address], 04/27/2024 16:13:23 04/15/20 24 04/15/2024 ESTRA DIOL estradiol 44.4 pg/mL This assay was perfo rmed using [employer] ratio n reage nts and test kits. Value s obtai danielle with other assay metho ds or kits canno t be used inter [facility] eaaustin . Femal e Estra diol Range s: Folli cular phase 12.4- 233 pg/mL Ovula tion phase 41.0- 398 pg/mL Lutea l phase 22.3- 341 pg/mL Postm enopa usal <5-13 8 pg/mL Healt hy Pregn ant Women 1st Trime ster 154-3 243 pg/mL 2nd Trime ster 1561- 12950 pg/mL 3rd Trime ster 8525- >3000 0 pg/mL Not Available [facility] (Lab) [address] [place], [address], 04/27/2024 16:13:24 04/15/20 24 04/15/2024 PROGE STERO NE progesterone 0.15 NG/mL This assay was perfo rmed using [employer] ratio n reage nts and test kits. Value s obtai danielle with other assay metho ds or kits canno t be used inter [facility] . Femal e Proge stero ne Range s: Folli cular phase 0.06- 0.89 ng/mL Ovula tion phase 0.12- 12.00 ng/mL Lutea l phase 1.83- 23.90 ng/mL Postm enopa usal <0.05 -0.13 ng/mL Healt hy Pregn ant Women 1st Trime ster 11.0- 44.30 2nd Trime ster 25.40 -83.3 0 3rd Trime ster 58.70 -214. 00 Not Available [facility] (Lab) [address] [place], [address], 04/27/2024 16:13:24 04/15/20 24 04/15/2024 PROLA CTIN prolactin, total 7.78 NG/mL 4.79-2 3.30 This assay was perfo rmed using [employer] ratio n reage nts and test kits. Value s obtai danielle with other assay metho ds or kits canno t be used inter [facility] eay . Not Available [facility] (Lab) [address] [place], [address], 04/27/2024 16:13:24 04/15/20 24 04/15/2024 LH (LUTE NIZIN G HORMO NE) LH 6.2 mIU/m L This assay was perfo rmed using [employer] ratio n reage nts and test kits. Value s obtai danielle with other assay metho ds or kits canno t be used inter [facility] eay . Femal es Mid-F ollic ular: 2.4-1 2.6 mIU/m L Mid-C ycle: 14.0- 95.6 mIU/m L Mid-L uteal : 1.0-1 1.4 mIU/m L Postm enopa use: 7.7-5 8.5 mIU/m L Not Available [facility] (Lab) [address], [place], [address], 04/27/2024 16:13:25 04/15/20 24 04/15/2024 FSH FSH 7.8 mIU/m L This assay was perfo rmed using [employer] ratio n reage nts and test kits. Value s obtai danielle with other assay metho ds or kits canno t be used inter [facility] eaaustin . Femal es Folli cular : 3.5-1 2.5 mIU/m L Ovula tion: 4.7-2 1.5 mIU/m L Lutea l: 1.7-7 .7 mIU/m L Postm enopa use: 25.8- 134.8 mIU/m L Not Available [facility] (Lab) [address], [place], [address], 04/27/2024 16:13:25 04/15/20 24 04/15/2024 DHEA SULFA TE DHEA-sulfate 146 ug/dL Femal e Range s Age(y ) Range (ug/d L) 10-15 34-28 0 15-20 65-36 8 20-25 148-4 07 25-35 99-34 0 35-45 61-33 7 45-55 35-25 6 55-65 19-20 5 65-75 9-246 > 75 12-15 4 Not Available [facility] (Lab) [address], [place], [address], 04/27/2024 16:13:25 04/15/20 24 04/15/2024 HEMOG LOBIN A1C hemoglobin A1C 5.3 % 0-5.6 The Ameri can Diabe jimmie Assoc iatio n recom mends that a prima ry goal of thera py shoul d be a HBA1C of < 7% and that physi cians shoul d reeva luate the treat ment regim en in patie nts with HBA1C value s consi stent ly > 8%. <5.7% Dasha l 5.7 - 6.4% Incre ased risk for diabe jimmie >=6.5 % Diagn ostic of diabe jimmie <7.0% Goal of thera py >8.0% Actio n sugge sted Not Available [facility] (Lab) [address], [place], [address], 04/27/2024 16:13:26 04/15/20 24 04/15/2024 TESTO STERO NE, FREE( DIALY SIS) AND TOTAL (LC/M S/MS) testosterone , total 25 NG/dL 2-45 For addit ional infor sakshi raygoza e refer to http: //cee jorgensenque stdia gnost ics.c om/fa q/ Total Testo stero neLCM SMSFA Q165 (This link is being provi ded for infor lauren borja/ educa josselyn l purpo ses only. ) This test was devel oped and its lili tical perfo rmanc e jose cteri stics have been deter mined by [facility] Rick woo Castilloi tresa [place], [place]. It has not been clear ed or appro stephanie by the U.S. Food and Drug Admin istra tion. This assay has been valid ated pursu ant to the CLIA regul ation s and is used for clini forest purpo ses. Not Available [facility] (Lab) [address], [place], [address], 04/27/2024 16:13:26 04/15/20 24 04/15/2024 TESTO STERO NE, FREE( DIALY SIS) AND TOTAL (LC/M S/MS) testosterone , free 2.9 pg/mL 0.1-6. 4 This test was devel oped and its lili tical perfo rmanc e jose cteri stics have been deter mined by [employer] ost[employer] s Rick [place], [place]. It has not been clear ed or appro stephanie by the U.S. Food and Drug Admin istra tion. This assay has been valid ated pursu ant to the CLIA regul ation s and is used for clini forest purpo ses. Perfo rming Organ izati on Infor mat n: Site ID: [id number] Name: [employer]stic [employer] Rick berkowitz [facility] Addre ss: [id number] [place], [place] Direc tor: Carol Arzola MD PhD Not Available [facility] (Lab) [address], [place], [address], 04/27/2024 16:13:26 04/15/20 24 04/15/2024 17-OH PROGE STERO NE 17-hydroxypr ogesterone, lc/MS/MS 34 NG/dL Adult Femal e Refer ence Range s for 17-Hy droxy proge stero ne: Pre-M enopa usal Mid Folli cular : 23-10 2 ng/dL Pre-M enopa usal Surge : 67-34 9 ng/dL Pre-M enopa usal Mid Lutea l: 139-4 31 ng/dL Postm enopa usal Phase : < or = 45 ng/dL Pregn madelyn: First Trime ster: 78-45 7 ng/dL Secon d Trime ster: 90-35 7 ng/dL Third Trime ster: 144-5 78 ng/dL This test was devel oped and its lili tical perfo rmanc e jose cteri stics have been deter mined by [employer]. It has not been clear ed or appro stephanie by FDA. This assay has been valid ated pursu ant to the CLIA regul ation s and is used for clini forest purpo ses. Perfo rming Organ izati on Infor matio n: Site ID: [id number] Name: [employer] ost[employer]/Brendon brar [employer] jihan fan , Addre ss: [id number] [place] [address] Direc tor: Mackenzie esquivel MD,Ph D,DAVID Not Available [facility] (Lab) [address], [place], [address], 04/27/2024 16:13:26 04/21/20 24 04/21/2024 US, pelvi s No observ ation record ed. [facility] [address], [place], [address], 04/21/2024 13:23:46 04/21/2004/21/2024 US, trans vagin al No observ ation record ed. [facility] [address], [place], [address], 04/21/2024 13:23:56 04/21/2004/21/2024 US, pelvi s No observ ation record ed. [email or web address], [place], [address], 04/21/2024 18:52:10 Result Notes None recorded. Procedures Surgical History Date Name Laterality Status Provider Name and Address Organization Details Recorded Time 04/15/2024 Date of Last Pap Smear completed [facility] 10/29/2024 12:03:15 Imaging Results None recorded. Procedure Notes None recorded. Medical Equipment None Reported. Allergies Allergen ID Allergen Name Allergen Category Reaction Reaction Severity Criticality Documentation Date Start Date Code Code System Note Provider Name and Address Organization Details Recorded Time 35474 ethinyl estradiol / levonorge strel medicatio n fever Not available Not available 04/15/2024 43762 [id number] RxNorm [facility] 12:15:18 Medications Name Sig Start Date Stop Date Status Note LastModified by Organization Details LastModified Time prednisone 20 mg tablet TAKE 2 TABLETS BY MOUTH DAILY FOR 5 DAYS 10/29 completed Not Available Not Available Not Available sumatriptan 50 mg tablet TAKE 1 TABLET BY MOUTH AT ONSET OF HEADACHE. MAY REPEAT AFTER 2 HOURS IF HEADACHE RETURNS. DO NOT EXCEED 200 MG IN 24 HOURS 04/15 completed Not Available Not Available Not Available amitriptyli ne 50 mg tablet TAKE 1 TABLET BY MOUTH DAILY 04/15 completed Not Available Not Available Not Available triamcinolo ne acetonide 0.1 % topical cream 04/15 completed Not Available Not Available Not Available ondansetron 8 mg disintegrat ing tablet DISSOLVE 1 TABLET ON THE TONGUE EVERY 8 HOURS NEEDED FOR NAUSEA OR VOMITING 04/15 completed Not Available Not Available Not Available amitriptyli ne 10 mg tablet TAKE 2 TABLETS BY MOUTH EVERY DAY 02/06 completed Not Available Not Available Not Available meclizine 25 mg tablet TAKE 1 TABLET BY MOUTH TWICE DAILY NEEDED 04/15 completed Not Available Not Available Not Available naproxen 500 mg tablet,meaghan yed release TAKE 1 TABLET BY MOUTH TWICE DAILY 04/15 completed Not Available Not Available Not Available montelukast 10 mg tablet TAKE 1 TABLET BY MOUTH EVERY DAY 04/15 completed Not Available Not Available Not Available albuterol sulfate HFA 90 mcg/actuati on aerosol inhaler INHALE 2 PUFFS BY MOUTH EVERY 4 TO 6 HOURS NEEDED FOR SHORTNESS OF BREATH OR WHEEZING 12/28 completed Not Available Not Available Not Available dextroamphe tamine-amph etamine ER 30 mg 24hr capsule,ext end release TAKE 1 CAPSULE BY MOUTH EVERY DAY IN THE MORNING 04/15 completed Not Available Not Available Not Available cefdinir 300 mg capsule TAKE 1 CAPSULE BY MOUTH EVERY 12 HOURS FOR 10 DAYS 02/06 completed Not Available Not Available Not Available escitalopra m 10 mg tablet TAKE 1 TABLET BY MOUTH EVERY DAY 04/15 completed Not Available Not Available Not Available cyclobenzap rine 5 mg tablet 04/15 completed Not Available Not Available Not Available amitriptyli ne 02/06 completed Not Available Not Available Not Available montelukast 02/06 completed Not Available Not Available Not Available Adderall 02/06 completed Not Available Not Available Not Available Xyzal 04/15 completed Not Available Not Available Not Available Breo Ellipta 100 mcg-25 mcg/dose powder for inhalation INL 1 PUFF PO QD 02/06 completed Not Available Not Available Not Available Breo Ellipta 02/06 completed Not Available Not Available Not Available Breo Ellipta 200 mcg-25 mcg/dose powder for inhalation INL 1 PUFF PO QD 04/15 completed Not Available Not Available Not Available Vitals Date Recorded Body height Body mass index (BMI) Body weight Systolic And Diastolic Provider Name and Address Organization Details Last Updated DateTime 10/29/2024 160.02 cm 32.9 kg/m2 51425.46 g 126/84 mm[Hg] [facility] 10/29/2024 12:02:59 Date Recorded Body height Body mass index (BMI) Body weight Systolic And Diastolic Provider Name and Address Organization Details Last Updated DateTime 12/28/2024 160.02 cm 33.4 kg/m2 10958.24 g 120/86 mm[Hg] [facility] 12/28/2024 09:42:32 Date Recorded Body height Body mass index (BMI) Body weight Systolic And Diastolic Provider Name and Address Organization Details Last Updated DateTime 04/15/2024 160.02 cm 32.8 kg/m2 43502.03 g 118/84 mm[Hg] [facility] 04/15/2024 12:15:09 Date Recorded Body height Body mass index (BMI) Body weight Systolic And Diastolic Provider Name and Address Organization Details Last Updated DateTime 05/12/2024 160.02 cm 33.5 kg/m2 46500.96 g 129/85 mm[Hg] [facility] 05/12/2024 12:48:07 Social History Question Answer Notes LastModified by Organizat ion Details LastModified Time Tobacco Smoking Status Never [facility] 12/02/2019 10:23:22 Do You Have An Advance Directive? No [email or web address] Information n ot available 12/28/2024 Are You Blind Or Do You Have Difficulty Seeing? No Information n ot available 02/06/2021 What Is Your Level Of Caffeine Consumption? Moderate [email or web address] Information not available 04/15/2024 In The 14 Days Before Symptom Onset, Have You Had Close Contact With A Laboratory-confirm ed COVID-19 While That Case Was Ill? No [email or web address] Information n ot available 04/15/2024 In The 14 Days Before Symptom Onset, Have You Had Close Contact With A Person Who Is Under Investigation For COVID-19 While That Person Was Ill? No [email or web address] Information not available 04/15/2024 Have You Been To An Area Known To Be High Risk For COVID-19? No [email or web address] Information not available 04/15/2024 Are You Deaf Or Do You Have Serious Difficulty Hearing? No Information not available 02/06/2021 What Type Of Diet Are You Following? REGULAR Information n ot available 02/06/2021 What Is The Highest Grade Or Level Of School You Have Completed Or The Highest Degree You Have Received? [id number] [email or web address] Information not available 04/15/2024 Are There Any Guns Present In Your Home? Yes [email or web address] Information not available 04/15/2024 Do You Use Protection During Sex? No [email or web address] Information not available 04/15/2024 Do You Use Your Seat Belt Or Car Seat Routinely? Yes Information not available 04/15/2024 Do You Have Smoke And Carbon Monoxide Detectors In Your Home? Yes [email or web address] Information not available 04/15/2024 How Much Tobacco Do You Smoke? No [email or web address] Information not available 04/15/2024 Do You Use Sunscreen Routinely? Yes Information not available 04/15/2024 Have You Used IV Drugs? No [email or web address] Information not available 04/15/2024 Sex: Unknown Functional Status Question Answer Note LastModified by Organizat ion Details LastModified Time Do you use any illicit or recreational drugs? No Information not available 02/06/2021 What is your level of alcohol consumption? None [email or web address] Information not available 04/15/2024 Are you able to walk? 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 None [email or web address] Information not available 04/15/2024 Mental Status Question Answer Note LastModified by Organization D etails LastModified Time Do you feel stressed (tense, restless, nervous, or anxious, or unable to sleep at night)? [id number] Information not available 04/15/2024 Family History Relationship Description Onset Age of this Age Resolved Age Notes LastModified by Organization Details LastModified Time Paternal Grandmother Malignant neoplasm of skin Not available 2020 13:08:10 Medical History Condition Response Other Y Headaches Y Eczema Y Asthma Y Gynecological History Statement/Question Response Flow Heavy Date of LMP 11/22/2024 On BCP's at Conception? N N Was last menstrual period normal Y STIs/STDs N HPV Vaccine N Duration of Flow (days) 6 10 Current Control Method Seeking Pre gnancy Are cycles usually normal Y Sexually Active? Y Menses Monthly Y Age of first menstrual cycle 14 Date of Last Pap Smear 04/15/2024 Sexual Problems? Y Desired Control Method None LMP Definite N Obstetrics History GPAL:G 0 P 0 0 0 0 Past Encounters Encounter ID Performer Location Encounter Start Date Encounter Closed Date Diagnosis/Indication Diagnosis SNOMED-CT Code Diagnosis ICD10 Code Diagnosis Note [id number] Sarika Bateman , [facility] [address] [address] 12/02/2019 10:11:17 12/04/2019 16:40:50 Gynecologic examination [id number] Z01.419 Take Calcium with Vitamin D 1200mg daily if not receiving in daily diet. It is strongly advised to have an annual flu shot and up can obtain at most pharmacies . If you have not had a TDap shot in the last 10 years you should obtain one as well. Discussed with patient & provided with informatio n regarding Gardisil vaccine to prevent the 4 strains for HPV that cause cervical cancer if under age 26. Encourage safe sexual practices, to use condoms and limit partners if not already in a monogamous relationsh ip. Do monthly self breast exams. Have mammogram yearly or every other year depending on family history. BRCA testing is now available for patients with strong genetic history of female cancer. If interested contact the office. Engage in daily exercise of low impact aerobic exercise 45-60 minutes 4-5 times weekly. Avoid tobacco and illicit drugs as well as using moderation with alcohol intake less than 1-2 8 oz beverages daily. This lifestyle behavior pattern will lead to less health conditions and longer life span. If BMI greater than 25 weight watchers or dietary consult advised. Patient received above instructio ns, and questions have been answered. If you have any questions please call or respond to this email. Patient was made aware of the patient portal and may obtain a paper copy of today's plan if desired. [id number] Sarika Bateman , [facility] [address] [address] 02/06/2021 12:53:16 02/06/2021 13:29:36 Gynecologic examination [id number] Z01.419 Take Calcium with Vitamin D 1200mg daily if not receiving in daily diet. It is strongly advised to have an annual flu shot and up can obtain at most pharmacies . If you have not had a TDap shot in the last 10 years you should obtain one as well. Discussed with patient & provided with informatio n regarding Gardisil vaccine to prevent the 4 strains for HPV that cause cervical cancer if under age 26. Encourage safe sexual practices, to use condoms and limit partners if not already in a monogamous relationsh ip. Do monthly self breast exams. Have mammogram yearly or every other year depending on family history. BRCA testing is now available for patients with strong genetic history of female cancer. If interested contact the office. Engage in daily exercise of low impact aerobic exercise 45-60 minutes 4-5 times weekly. Avoid tobacco and illicit drugs as well as using moderation with alcohol intake less than 1-2 8 oz beverages daily. This lifestyle behavior pattern will lead to less health conditions and longer life span. If BMI greater than 25 weight watchers or dietary consult advised. Patient received above instructio ns, and questions have been answered. If you have any questions please call or respond to this email. Patient was made aware of the patient portal and may obtain a paper copy of today's plan if desired.Dillon p/hpv sentSTD declinedBC is condomsNo ob/gyn related issues or concerns Vertigo [id number] R42 Going to see PCP Dr. Danny DICKENS on 02/14/2021. Will give prn use of this medication as she ran out. [id number] Neil Tomlinson MD [facility] [address] [address] 04/15/2024 12:06:06 04/15/2024 13:11:36 Gynecologic examination [id number] Z01.419 Annual gynecologi forest exam performed. Patient will come back in a year unless there are new symptoms. Suggest Calcium with Vitamin D if not eating in diet. Patient advised to get annual flu shot. Recommend yearly physicals and perform monthly breast exams. Genetic testing is available for patients with family history of cancer. Engage in safe sexual practices, use condoms. Encouraged to have daily exercise. Avoid tobacco and illicit drugs, moderation of alcohol. If BMI greater than 25 dietary consult advised. If you have any questions please call or email. mammogram - n/a colon cancer screening - n/a DEXA scan- n/a Pap smear- pap w/HPV collected laboratory evaluation - fertility labs drawn in addition to annual lab work STI testing - requested today Trying to conceive [id number] Z31.9 - We discussed her basic risk factors in the context of her current lifestyle and reviewed her medical history- We discussed avoidance of vices including smoking, ID, and excessive consumptio n of etOH- We discussed that she should take a PNV daily prior to in order to have a reserve of the necessary micronutri ents including iron & folate.- Immunizati ons were reviewed today including the recommenda tions for being up to date on Tdap, Influenza. - We discussed the potential causes of infertilit y and rationale behind testing. We also discussed her reproducti ve potential in the context of her age as well as the risk of aneuploidy .- We discussed her reproducti ve potential in the context of her BMI. We reviewed that given her BMI >25 her natural fertility could be improved by even just a 5% wt loss.- The patient is asked to complete a diagnostic work up that includes lab work in addition to pelvic u/s.- The patient was asked to have her partner collect a semen analysis.- Discussed the fertile time of the cycle and options for tracking ovulation, including ovulation predictor kits and basal body temperatur e.-- Discussed timed intercours e every other day starting on Day 6 of period through to the next period.-- Discussed using LH surge kits, usually accurate and would recommend intercours e that day and the next day, then can wait until next cycle.-- Discussed ovulation induction would be considered only after behavioral interventi ons were implemente d and after partner completes semen analysis.- Following the return of these test results she is asked to return to the office for further discussion of reproducti ve planning and treatment options Venereal d isease screening [id number] Z11.3 Pt requested STI testing for GC/CT/tric homonas - testing added to pap smear order. Discussed the various types of STDs, related symptoms and the potential consequenc es (including effects on fertility) of STD infections . Reviewed ways to limit exposure and prevention techniques . [id number] Neil Tomlinson MD [facility] [address],[facility] [place] [address] 04/21/2024 12:33:30 04/21/2024 13:19:00 Female infertility [id number] N97.9 N94.6 [id number] Neil Tomlinson MD [facility] [address],[facility] [place] [address] 05/12/2024 12:33:41 05/12/2024 14:00:59 Female infertility [id number] N97.9 Discussed that all labs ordered appeared to be within normal ranges for a pre-menopa usal woman.Disc ussed that her pelvic ultrasound showed normal ovaries and small follicles. However, a questionab le polyp was seen in the lining of the uterus. Uterine polyps are growths attached to the inner wall of the uterus. that extend into the uterine cavity. Overgrowth of cells in the lining of the uterus (endometri um) leads to the formation of the uterine polyps, also know as endometria l polyps. Most polyps are benign (noncancer ous) but some could eventually become precancero us or cancerous. Signs and symptoms of endometria l polyps are : * Irregular menstrual bleeding* Bleeding between menstrual periods* Excessivel y heavy menstrual periods.* Vaginal bleeding after menopause* Infertilit y Recommende d that patient have consult with Dr. Ball or Dr. Tomlinson to further discuss endometria l polyp treatment as well as discuss having a hysterosal pingogram (HSG) procedure to further investigat e uterine cavity/pot ential causes of infertilit y.Patient states that she would like to further discuss HSG and polyp removal with Dr. Ball (prefers female provider). Pt to call office to schedule consult. Premenstru al dysphoric disorder 212395 F32.81 Reviewed PMDD vs. PMS. Discussed treatment options with SSRIs intermitte ntly during cycle when symptoms typically occur or continuous ly. Reviewed side effects/be nefits/ris ks. Discussed treatment with hormonal contracept miguel angel to regulate cycles. Patient denies need for treatment at this time since patient trying to conceive.R eviewed stress and coping mechanisms to help with feelings of anger/irri tability associated with PMDD.Pt denies SI/HI.Danae ent to call office if she would like to pursue treatment. [id number] Neil Tomlinson MD [facility] [address] [address] 10/29/2024 11:55:05 10/29/2024 12:46:15 Irregular periods [id number] N92.6 -Discussed possible causes of irregular and/or frequent periods.-L ab work was WNL as of 04/15/24 - patient declined repeat labs today-Danae ent's pelvic ultrasound in 04/21/24 showed a questionab le polyp in the uterine lining. Discussed that this could potentiall y cause irregular menstrual bleeding or bleeding between periods. Patient states that she is still trying conceive and did not have a consult with to discuss HSG and polyp removal.-P atient desires to follow-up with Dr. Ball to discuss next steps.-Enc ouraged patient to continue to monitor for bleeding irregulari ty, and report any new or worsening symptoms. [id number] JACINDA BALL MD [facility] [address] [address] 12/28/2024 09:03:30 12/28/2024 10:17:15 Female infertility [id number] N97.9 - Differenti al diagnosis of cause of infertilit y includes: structural , anovulatio n, male factor- We discussed the potential causes of infertilit y and rationale behind testing. We also discussed her reproducti ve potential in the context of her age as well as the risk of aneuploidy .- Labwork wnl 03/2024-- Transvagin al ultrasound with SIS for endometria l cavity assessment , AFC and repeat for dominant follicle- The patient was asked to have her collect a semen analysis.- Discussed the fertile time of the cycle and options for tracking ovulation, including ovulation predictor kits and basal body temperatur e.-- Discussed timed intercours e every other day starting on Day 6 of period through to the next period.-- Discussed using LH surge kits, usually accurate and would recommend intercours e that day and the next day, then can wait until next cycle.-- Discussed ovulation induction would be considered only after behavioral interventi ons were implemente d and after partner completes semen analysis. Endometrial polyp [id number] N84.0 - 0.9x0.6cm endometria l polyp found on US 03/2024- recommend removal as this may be contributi ng to infertilit y- discussed risks of surgery, including bleeding, infection, and injury to adjacent structures Health Concerns Section Related Observation LastModified by Organization Detai ls LastModified Time None Recorded Concern Status LastModified by Organization Details LastModified Time None Recorded Advance Directives Directive N: Payers Insurance Date Sequence Insurance Name Policy Number Policy Arboleda Covered Member ID Arboleda Member ID Guarantor Name 01/01/2025 1 [employer] [id number] Margarito Luna [id number] Itzel Luna 12/28/2024 1 [employer] [id number] Itzel Olson [id number] Itzel Luna Notes Date Note Type Note Provider Name and Address Organization Details Recorded Time 4 text/html Annual GYNReported bypatient.History:acti vely trying to conceive Menstrual cycle:Normal menses Urinary symptoms:No hematuria; No incontinence Vulva:No genital lesion Vagina:Normal vaginal discharge Breast:No breast pain; No breast lump; No nipple discharge Sexual complaints:No sexual complaints; No pain during intercourse; Normal libido Menopausal Symptoms:No menopausal symptoms; Normal vaginal lubrication Psychological symptoms:No depression; No anxiety; No PMDD Preventive measures:Encourage self breast examination; Encourage regular exercise; Encourage no tobacco use; Encourage regular mammograms starting age 40 Patient presents for annual well woman exam.Patient is a and states that she has been trying to conceive for three years.Patient states that her cycles are regular, q28 days, last 5-6 days with moderate to heavy flow and cramping.Patient's partner is 34 yrs old and has had three children with a different partner.Patient states that she used LH strips the first year she was TTC and they indicated ovulation. Patient states that she did not have health insurance until now so that is why she waited to be evaluated for infertility.Denies known history of STDs, PCOS, fibroids, or ovarian cysts. Denies vaginal concerns.Patient states that she has not been on control in years and her periods have always been regular. ELAN MAC NP [address], [place], [address], [facility] 04/15/2024 13:10:18 4 text/html Patient here for ultrasound and fertility lab follow-up. Patient also reports feeling angry, irritable, and having low desire for activities approximately 8-10 days before her period starts. She states that these symptoms last 4-5 days and are cyclical. Pt thinks she has PMDD. ELAN MAC NP [address], [place], [address], [facility] 05/12/2024 14:00:31 5 text/html 38 y/o female presents with c/o irregular bleeding over the past month.Patient states that her cycles are typically regular, q28 days.Patient states that her LMP was 10/14/24-10/19/24. Patient then restarted bleeding 10/23/24-10/29/24 and is spotting.Neg pain of abd/pelvis/flankNeg urinary sx'sNeg GI sx'sNeg N/V/F/C/DNeg Vag d/c, odor, irritation, itchingDenies post-coital bleeding and dyspareuniaDenies new partners ELAN MAC NP [address], [place], [address], [facility] 10/29/2024 12:39:16 5 text/html Presents today for discussion of infertility. She and her partner have been actively been trying to conceive 3 years. They have used the following methods to help conceive: cycle tracking The patient reports she has regular menstrual periods. She denies a history of extremely painful periods. She reports they are very heavy. The last few months have been somewhat irregular, with one month of two periods. She was recently seen and found to have an endometrial polyp. She has not yet had this removed. No prior pregnancies. He has fathered 3 children from previous relationships. He denies a history of childhood illnesses or cancers. He denies family history of autism/MR and infertility. He has not completed a semen analysis JACINDA BALL MD [address], [place], [address], [facility] 12/28/2024 10:15:42 OBGyn Episode No OBEpisode recorded.
--- NOTE | 2025-01-04 10:37 | P.PNAN_ITS ---
Anes - Initial Pre Proc Eval Procedure: Operation Date: 01/04/25 13:00 Proposed Procedures p Hysteroscopy with Biopsy of Endometrium and/or Polypectomy - Vishal Bautista MD Date/Time: 01/04/25 10:37 Surgeon: Vishal Bautista MD Pre Op Diagnosis: Endometrial Polyp Patient Data Age: 39 Gender: F Height: 1.57 m Weight: 85.8 kg Allergies Allergy/AdvReac Type Severity Reaction Status Date / Time No Known Allergies Allergy Verified 01/04/25 11:55 Home Medications ?Medication ?Instructions ?Recorded ?Confirmed ?Type levocetirizine 5 mg tablet (Xyzal) 5 mg PO DAILY 08/30/20 12/28/24 History naproxen 500 mg tablet,delayed 500 mg PO BID #60 tabs 12/27/20 12/28/24 Rx release (EC-Naproxen) albuterol sulfate 90 mcg/actuation 2 puff inhalation Q4H PRN 08/17/21 12/28/24 Rx aerosol inhaler (ProAir HFA) shortness of breath or wheezing #1 device Patient hx anesthesia problems: none Family hx anesthesia problems: none Results Review: All pre-operative results and documents have been reviewed as part of the pre- operative evaluation. [facility] Past Medical History Medical History Asthma Pharyngitis BMI 30.0-30.9,adult Migraine Allergic rhinitis Attention deficit disorder Mild intermittent asthma without complication Family History Family History Mother Family history of cystic fibrosis Social History Social History Smoking status: Never smoker Second hand tobacco smoke exposure: Yes Alcohol intake: former Alcohol use details: socially; seldom Substance use: never Substance use type: does not use Living arrangements: with family Gender identity (if verbalized by the patient): Female Spiritual care concerns: No Anes - Eval Final PreProcedure Day of Procedure 01/04/25 10:37 Patient weight: obese Heart: regular rate and rhythm Lungs: clear to auscultation Airway: Mallampati scale class II Neurological: alert and oriented Last oral intake: >/= 8 hours ASA classification: II Emergent: no Anesthetic plan: proceed Anesthesia type and monitoring: general GIVS and standard monitoring Results Review: All pre-operative results and documents have been reviewed as part of the pre-operative evaluation. Informed Consent: The patient's anesthetic plan and its attendant risks and benefits were discussed with the patient/family/POA. Questions were solicited and answers provided to the satisfaction of the patient/family/POA.
--- NOTE | 2025-01-04 11:51 | PM.IMHP ---
H&P: HPI History of Present Illness Date/Time: 01/04/25 11:51 Chief Complaint: endometrial polyp Narrative: Patient is a 39 year old female who presents for hysteroscopy and polypectomy, indicated for endometrial polyp. She had an ultrasound performed in 03/2024 for infertility and irregular bleeding which demonstrated a 0.9x0.6cm endometrial polyp. Risks and benefits of expectant management vs surgical removal discussed with patient, who voices understanding. Review of Systems Review of Systems: All systems reviewed & are unremarkable except as noted in HPI and below PMFSH Past Medical History Medical History Asthma Pharyngitis BMI 30.0-30.9,adult Migraine Allergic rhinitis Attention deficit disorder Mild intermittent asthma without complication Family History Family History Mother Family history of cystic fibrosis Social History Social History Smoking status: Never smoker Second hand tobacco smoke exposure: Yes Alcohol intake: former Alcohol use details: socially; seldom Substance use: never Substance use type: does not use Living arrangements: with family Gender identity (if verbalized by the patient): Female Spiritual care concerns: No Meds Home Medications and Allergies Home Medications ?Medication ?Instructions ?Recorded ?Confirmed ?Type levocetirizine 5 mg tablet (Xyzal) 5 mg PO DAILY 08/30/20 12/28/24 History naproxen 500 mg tablet,delayed 500 mg PO BID #60 tabs 12/27/20 12/28/24 Rx release (EC-Naproxen) albuterol sulfate 90 mcg/actuation 2 puff inhalation Q4H PRN 08/17/21 12/28/24 Rx aerosol inhaler (ProAir HFA) shortness of breath or wheezing #1 device Allergies Allergy/AdvReac Type Severity Reaction Status Date / Time No Known Allergies Allergy Verified 12/28/24 14:15 Exam Const: General: comfortable and no acute distress Eyes: General: appearance normal, both eyes and all related structures Resp: Effort & Inspection: normal respiratory effort Cardio: Rate: regular rate Psych: Mental Status: mental status grossly normal Assessment and Plan Assessment and plan (1) Endometrial polyp: Code(s): N84.0 - Polyp of corpus uteri Status: Acute Assessment and Plan: 0.9x0.6cm endometrial polyp found on infertility/irregular bleeding workup - risks and benefits of procedure discussed with patient - will proceed with hysteroscopy and polypectomy
[2025-01-04] MEDS: ACETAMINOPHEN 500 MG TABLET 1000 MG PO (11:56)
[2025-01-04] MEDS: LACTATED RINGERS 1,000 ML 30 ML IV CONT (11:56)
[2025-01-04 11:59] VITALS: BP 127/85; PULSE 87; RESP 16; TEMP 36.3; O2SAT 99
[2025-01-04 12:05] LABS: BEDSIDEPREGUCG Negative (Negative)
--- NOTE | 2025-01-04 12:34 | WPDHPUPDATE1 ---
History and Physical Update Update Date/Time: 01/04/25 12:34 History and Physical has been reviewed, including an updated exam of the patient. There are NO changes in the patient's condition. Risks, benefits, and alternatives have been discussed and questions answered. Patient agrees to proceed with procedure.
[2025-01-04] MEDS: LIDO 1%/EPINEPHRINE 1:100,000 20 ML VIAL 10 ML INFILTRATE (12:53)
--- NOTE | 2025-01-04 13:02 | S_PTH ---
PATIENT: Itzel Luna LOC: [facility] U#:[id number] AGE/SX: 39/F ROOM: RE01/04/[address]: Vishal Bautista MD : 1985 BED: DIS: 01/04/2025 SPEC #: [id number] RECD: 01/04/25 13:34 STATUS: MIKE REQ #: [id number] SALO: 01/04/25 13:[address]: Vishal Bautista DEPT: [facility] Surgical RECD BY: Robert Rose ENTERED: 01/04/25 13:37 SP TYPE: Surgical OTHR DR: Feliciano Metz MD Tissues: A - Endometrial Curettings Procedures: Hematoxylin and Eosin Stain Gross and Microscopic Level 4
[2025-01-04 13:10] VITALS: BP 117/72; PULSE 95; RESP 14; O2SAT 95
--- NOTE | 2025-01-04 13:33 | W.PM.PROC2 ---
Procedure Note - Detailed Date of Procedure 01/04/25 Pre-op Diagnosis Endometrial Polyp Post-op Diagnosis Same Procedure Performed hysteroscopy, polypectomy Surgeon Vishal Bautista MD Anesthesia MAC Findings elongated endometrial polyp in right cornua; normal appearing cavity and bilateral tubal ostia postprocedure Description of Procedure The patient was taken to the operating room with IVFs running. She was placed into the dorsal supine position where she received MAC without any difficulty. The patient was placed in the dorsal lithotomy position using Julián stirrups. EUA revealed findings as above. She was then prepped and draped in a normal sterile fashion. A time-out procedure was performed and all members of the OR team agreed on the patient and plan. A bivalve speculum was then inserted into the patient's vagina. The anterior lip of the cervix was grasped with a single tooth tenaculum. The hysteroscope was then inserted into the uterine cavity using saline as the distension media and revealed the above findings. Both ostia were identified and pictures were taken. At this point, the morcellator was then introduced into the hysteroscope and calibrated. The tip of the morcellator was then applied to the polyp and activated. The polyp was removed to its base. At the end of the procedure, the uterine cavity was clear of all pathology. The fluid deficit was 100 cc. The specimen was sent for pathology. The hysteroscope and tenaculum were removed. The speculum was then reintroduced into the vagina and the anterior lip of the cervix was hemostatic. The speculum was then removed. The patient tolerated the procedure well. Sponge, lap, and instrument counts were correct X2. The patient was taken out of the dorsal lithotomy position and was awakened from anesthesia. She was taken to the recovery room in stable condition. Estimated Blood Loss 5 Pathology Yes Complications No immediate complications Condition Stable Disposition Same day
[2025-01-04 13:40] VITALS: BP 114/67; PULSE 84
[2025-01-04 14:10] VITALS: BP 119/79; PULSE 79
== END 2025-01-04 14:30 | disposition home or self-care (01) ==
PROVIDERS: PCP Family Medicine; Visit Provider Obstetrics & Gynecology
PROC: 0U5B8ZZ Destruction of Endometrium, Via Natural or Artificial Opening Endoscopic (ICD-10-PCS; CPT 58563; principal; 2025-01-04 13:00)
DX: N84.0 Polyp of corpus uteri (principal); J45.909 Unspecified asthma, uncomplicated; F98.8 Other specified behavioral and emotional disorders with onset usually occurring in childhood and adolescence; E66.9 Obesity, unspecified; Z68.34 Body mass index [BMI] 34.0-34.9, adult; Z79.1 Long term (current) use of non-steroidal anti-inflammatories (NSAID); Z79.51 Long term (current) use of inhaled steroids
CPT/HCPCS: 58558; 88305; A9270; J2003; J2004; J2250; J2405; J2704; J3010; J7120